=== PATIENT | female | born 1975 | race Caucasian/White ===

== ENCOUNTER → 2018-09-25 | Outpatient (CLI) | payer OTHER ==
--- NOTE | 2018-09-25 10:07 | RAD ---
Examination: Ultrasound pelvis HISTORY: History of heavy and frequent menses COMPARISON: None available FINDINGS: The uterus measures 10.0 x 7.7 x 5.7 cm. The endometrium measures 8.6 mm in thickness. The right ovary measures 1.9 x 2.1 x 2.3 cm. The left ovary measures 1.8 x 1.3 x 2.0 cm. Blood flow identified in the right and left ovaries. There is a 2.0 x 1.6 x 1.4 cm nodule identified in the right ovary with the some vascular flow within. No significant free fluid identified in the pelvis. IMPRESSION: 1. A 2 cm solid nodule or collapsed cyst with vascular flow identified in the right ovary. Consider MRI pelvis for further evaluation. 2. The endometrium measures 8.6 mm. If patient is postmenopausal, this may be mildly thickened endometrium. Electronically signed by: Mani Britt MD (09/25/2018 10:03 AM) [email or web address]
== END | disposition home or self-care (01) ==
LOC: US 08:54
PROVIDERS: ATTEND Nurse Practitioner Family
DX: Z12.31 Encounter for screening mammogram for malignant neoplasm of breast (principal); N92.1 Excessive and frequent menstruation with irregular cycle
CPT/HCPCS: 76830; 76856; 77063; 77067

== ENCOUNTER → 2018-10-13 | Outpatient (CLI) | payer OTHER ==
--- NOTE | 2018-10-13 11:02 | RAD ---
DATE: 10/13/2018 EXAM: DIGITAL DIAGNOSTIC RT, BREAST RIGHT HISTORY: Right breast microcalcifications COMPARISON: 09/25/2018, 04/29/2014 This study was interpreted with the benefit of Computerized Aided Detection (CAD). Breast Density: SCATTERED The breast parenchyma shows scattered fibroglandular densities. Breast parenchyma level B. FINDINGS: Additional views of the right breast were obtained and correlated with the screening images. At the 12:00 retroareolar level there are several small microcalcifications. These tend to be smooth and rounded. Some of these were present on the previous study. They have a relatively benign appearance. There is a tiny 4 mm nodule in the posterolateral aspect of the right breast at approximately the 9:00 location, best seen on the screening tomosynthesis imaging. There is a smooth microcalcification along its margin. There is a questionable additional tiny microcalcification along its margin as seen on the straight mediolateral view. The larger microcalcifications was present in retrospect on the 2013 exam. This is most likely a tiny fibroadenoma. Right breast ultrasound, 10/13/2018: A targeted ultrasound exam of the lateral aspect of the right breast was performed centered at the 9:00 location. No solid mass or unusual fluid collection is seen. No sonographic correlate for the mammographic finding could be delineated. IMPRESSION: 1. Probably benign right retroareolar microcalcifications. 2. Probably benign small right lateral breast nodule. 3. Follow-up right mammography in 6 months and bilateral mammography at one year is suggested. BI-RADS CATEGORY: 3 PROBABLY BENIGN FINDING(S)-SHORT INTERVAL FOLLOW-UP SUGGESTED RECOMMENDED FOLLOW-UP: 6M 6 MONTH FOLLOW-UP PQRS compliance statement: Patient information was entered into a reminder system with a target due date for the next mammogram. Mammography is a sensitive method for finding small breast cancers, but it does not detect them all and is not a substitute for careful clinical examination. A negative mammogram does not negate a clinically suspicious finding and should not result in delay in biopsying a clinically suspicious abnormality. "Our facility is accredited by the [employer] Mammography [employer]."
== END | disposition home or self-care (01) ==
LOC: MAMMO 09:14
PROVIDERS: ATTEND Nurse Practitioner Family
DX: R92.8 Other abnormal and inconclusive findings on diagnostic imaging of breast (principal)
CPT/HCPCS: 76641; 77065

== ENCOUNTER → 2021-02-14 | Outpatient (CLI) | payer OTHER ==
--- NOTE | 2021-02-14 15:44 | RAD ---
EXAM: BILATERAL DIGITAL DIAGNOSTIC MAMMOGRAPHY. HISTORY: Six-month follow-up was recommended in September 2018. Yearly examination. TECHNIQUE: Bilateral full field digital images were obtained in CC and MLO projections. Computer-aide d detection was applied. COMPARISON: 09/25/2018, 10/13/2018, 04/29/2014. COMPOSITION: B. There are scattered areas of fibroglandular density. FINDINGS: The small nodule of prior concern superolaterally on the right is stable and contains benig n-appearing calcifications. A few rounded calcifications within the right subareolar region are stabl e and also appear benign. There are no suspicious masses, microcalcifications or architectural distor tion. The parenchymal pattern is stable. BI-RADS CATEGORY 2: Benign. RECOMMENDATION: 1. Routine screening mammography in one year. If mammography demonstrates dense breast tissue (heterogenously dense or extremely dense, category C or D), which could hide abnormalities, and if other risk factors for breast cancer have been identifi ed, supplemental screening tests that may be suggested by the ordering physician may be of benefit. D ense breast tissue, in and of itself, is a relatively common condition. Therefore, this information i s not provided to cause undue concern, but rather to raise awareness and to promote discussion with t he referring physician regarding the presence of other risk factors, in addition to dense breast tiss ue. The results of this mammography examination is provided to the patient and referring physician. T he patient should contact their referring physician if any questions or concerns exist regarding this report. PQRS compliance statement - Patient information was entered into a reminder system with a target due date for the next mammogram. "Our facility is accredited by the [employer] Mammography [employer]." Electronically signed by: Rehan Duffy MD (02/14/2021 3:42 PM) [email or web address]
== END ==
LOC: MAMMO 14:25
PROVIDERS: ATTEND Family Medicine
DX: R92.1 Mammographic calcification found on diagnostic imaging of breast (principal)
CPT/HCPCS: 77066; G0279; 77062